=== PATIENT | female | born 2000 | race Caucasian/White ===

== ENCOUNTER 2018-10-11 14:09 | Inpatient (IN) | payer OTHER ==
[~2018-10-11] VITALS: Ht 157.5 cm; Wt 69.8 kg
[~2018-10-11 14:09] MED LIST: PREN1TAB13 PO
[2018-10-11 14:24] VITALS: Ht 157.5 cm; Wt 69.8 kg
[2018-10-11 14:27] VITALS: BP 114/66; PULSE 67; RESP 20
[2018-10-11] MEDS ORDERED: OXYTOCIN 30 UNITS/LR 500 ML IV SCH ×2 (15:30)
[2018-10-11] MEDS ORDERED: METHYLERGONOVINE 0.2 MG INJ IM PRN (15:30)
[2018-10-11] MEDS ORDERED: MISOPROSTOL 200 MCG TAB PR PRN ×2 (15:30→20:30)
[2018-10-11] MEDS ORDERED: OXYTOCIN 30 UNITS/LR 500 ML IV PRN (15:30)
[2018-10-11] MEDS ORDERED: LIDOCAINE 1% (MPF) 30 ML INJ INJ PRN (15:30)
[2018-10-11] MEDS ORDERED: CARBOPROST 250 MCG INJ IM PRN (15:30)
[2018-10-11] MEDS: LACTATED RINGER'S 1,000 ML IV SCH ×2 (16:12→20:31)
[2018-10-11] MEDS ORDERED: LACTATED RINGER'S 1,000 ML IV SCH (20:28)
--- NOTE | 2018-10-11 20:28 | HP ---
Date/Time of Note Date/Time of Note DATE: 10/11/18 TIME: 20:20 OB - History Hx of Present Free Text/Dictation 17 YO G1 with IUP at 37 weeks with EDC of 11/01/2018. 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 she was f/u by weekly BPP by perinatologist. today Dr. Singer called me because she had BPP 6/8 and higher BPs as compare to her baseline BPs. Jennifer also reported decreased FM. NST had repeated decelerations in triage. NST is category one at this time. BPP was 8/8 in Triage. patient was seen by me last week in office and reported to me that she is motivated to have vaginal delivery. today she became very concerned with decelerations and she does not want to have vaginal delivery. she is requesting elective primary c/s. I discussed with the patient the risks, benefits, indications, and alternatives of procedure including but not limited to risks of infection, bleeding, damage to other organs, bowel, bladder, hernia formation, scar formation, possibility of blood transfusion, possible need for emergency hysterectomy. She was allowed to ask questions. All her questions were answered. Informed consent has been obtained. she denies headache, visual changes or RUQ pain. Care: Good Care Ultrasounds: Abnormal US findings Obstetrical Complications: None Medical Complications: None Past Family/Social History * Past Medical, Surgical, Family and Obstetric Histories reviewed from chart. OB Admission Exam Vital Signs Vital Signs Vital Signs Date Temp Pulse Resp B/P (MAP) Pulse Ox O2 O2 Flow FiO2 Time Delivery Rate 10/11/18 97.9 67 20 114/66 14:27 (82) Physical Exam HEENT: WNL Heart: Rhythm Normal Lungs: Clear, Equal Abdomen: WNL Extremities: Normal Reflexes: Normal Cervical Dilatation: None Last 72 hours Lab Results CBC & BMP 10/11/18 15:30 Liver Function Test 10/11/18 15:30 Alanine Aminotransferase (ALT/SGPT) 16 Albumin 3.1 L Alkaline Phosphatase 227 H Aspartate Amino Transf (AST/SGOT) 24 Direct Bilirubin 0.00 Total Protein 6.2 OB Assessment/Plan Other Assessment: IUP at 37 weeks variable decelerations in triage Gastroschisis patient desires delivery Plan: Section JACEK ABDI MD Oct 11, 2018 20:28
[2018-10-11] MEDS ORDERED: OXYCODONE/ACETAMINOPHEN (5/325) TAB PO PRN (20:30)
[2018-10-11] MEDS ORDERED: NA PHOSPHATE/BIPHOS 133 ML ENEMA PR PRN (20:30)
[2018-10-11] MEDS ORDERED: CEFAZOLIN 2 GM/50 ML (PMX) 50 ML IVPB SCH (20:30)
[2018-10-11] MEDS ORDERED: LANOLIN HPA 1 PKT TOP PRN (20:30)
--- NOTE | 2018-10-11 20:33 | PREAC ---
Date/Time of Note Date/Time of Note DATE: 10/11/18 TIME: 20:32 Anesthesia Eval and Record Evaluation Time Pre-Procedure Interview DATE: 10/11/18 TIME: 20:32 Age 17 Sex female NPO: 8 hrs Preoperative diagnosis c section Planned procedure c section Past Medical History Past Medical History: None Surgery & Anesthesia Issues No known issue Meds Anticoagulation: No Beta Milena within 24 hr: No Reason Beta Milena not given: Pt. not on B-Milena Reported Medications Pnv95/Ferrous Fumarate/FA ( Vitamins Tablet) 1 Each Tablet, 1 EACH PO, TAB 10/03/18 Current Medications Lactated Ringer's 1,000 ml @ 125 mls/hr Q8H IV Last administered on 10/11/18at 20:31; Admin Dose 125 MLS/HR; Start 10/11/18 at 15:24 Lidocaine (Xylocaine 1% (Mpf)) 30 ml ONCE PRN INJ .EPISIOTOMY; Start 10/11/18 at 15:30 Oxytocin/Lactated Ringer's 500 ml @ 500 mls/hr ONCE POST IV ; Start 10/11/18 at 15:30 Oxytocin/Lactated Ringer's 500 ml @ 125 mls/hr POST IV ; Start 10/11/18 at 15:30 Oxytocin/Lactated Ringer's 500 ml @ 0 mls/hr ONCE PRN IV .VAGINAL BLEEDING; Start 10/11/18 at 15:30 Methylergonovine Maleate (Methergine) 0.2 mg ONCE PRN IM .VAGINAL BLEEDING; Start 10/11/18 at 15:30 Carboprost Tromethamine (Hemabate) 250 mcg ONCE PRN IM .VAGINAL BLEEDING; Start 10/11/18 at 15:30 Misoprostol (Cytotec) 1,000 mcg ONCE PRN AK .VAGINAL BLEEDING; Start 10/11/18 at 15:30 Cefazolin Sodium/ Dextrose 50 ml @ 100 mls/hr ONCE IVPB ; Start 10/11/18 at 20:30 Lactated Ringer's 1,000 ml @ 125 mls/hr Q8H IV ; Start 10/11/18 at 20:28; Stop 10/12/18 at 00:27; Status UNV Oxycodone/ Acetaminophen (Percocet (5/ 325)) 1 tab Q4H PRN PO .PAIN 4-6; Start 10/11/18 at 20:30; Status UNV Oxycodone/ Acetaminophen (Percocet (5/ 325)) 2 tab Q4H PRN PO .PAIN 7-10; Start 10/11/18 at 20:30; Status UNV Ibuprofen (Motrin) 600 mg Q6 PO ; Start 10/12/18 at 00:00; Status UNV Simethicone (Mylicon) 160 mg Q8H PRN PO .GAS; Start 10/11/18 at 20:30; Status UNV Senna/Docusate Sodium (Senokot-S) 1 tab BID PO ; Start 10/11/18 at 21:00; Status UNV Sodium Biphosphate/ Sodium Phosphate (Fleet Enema) 133 ml DAILY PRN AK .CONSTIPATION; Start 10/11/18 at 20:30; Status UNV Lanolin (Lanolin Hpa) 1 applic BEDSIDE MEDICATION PRN TOP .NIPPLES; Start 10/11/18 at 20:30; Status UNV Diphtheria/ Tetanus/Acell Pertussis (Adacel) 0.5 ml ONCE ONCE IM* ; Start at 09:00; Stop 10/14/18 at 09:01; Status UNV Measles/Mumps/ Rubella Vaccine Live (Mmr Ii Vaccine) 0.5 ml ONCE ONCE SC* ; Start 10/14/18 at 09:00; Stop 10/14/18 at 09:01; Status UNV Misoprostol (Cytotec) 1,000 mcg ONCE PRN AK .VAGINAL BLEEDING; Start 10/11/18 at 20:30; Status UNV Meds reviewed: Yes Allergies Coded Allergies: No Known Allergies (Unverified Allergy, Unknown, 12/13/15) Allergies Reviewed: Yes Labs/Studies Labs Reviewed: Reviewed by anesthesiologist Result Diagram: 10/11/18 1530 10/11/18 1530 Laboratory Tests 10/11/18 15:30 Blood Bank Test 10/11/18 15:30 10/11/18 20:28 Antibody Screen NEGATIVE Blood Type A POSITIVE Rh Immune Globulin Candidate NO Blood Product Summary Counts test: N/A Pre-procedure Exam Last vitals Vital Signs Date Temp Pulse Resp B/P (MAP) Pulse Ox O2 O2 Flow FiO2 Time Delivery Rate 10/11/18 97.9 67 20 114/66 14:27 (82) Airway: Adequate mouth opening, Adequate thyromental dist Mallampati: Mallampati III Teeth: Normal Lung: Normal Heart: Normal ASA Physical Status ASA physical status: 2 Emergency: None Pre-operative Attestations Prior to commencing anesthesia and surgery, the patient was re-evaluated, there was verification of: *The patient's identity *The results of appropriate recent lab work and preoperative vital signs *The above evaluation not changing prior to induction *Anesthetic plan, risk benefits, alternative and complications discussed with patient/family; questions answered; patient/family understands, accepts and wishes to proceed. SOREN GONZALEZ DO Oct 11, 2018 20:32
[2018-10-11] MEDS ORDERED: FENTAnyl 50 MCG/ML VIAL ONE (20:58)
[2018-10-11] MEDS ORDERED: morphine SULFATE/PF (10 MG/10 ML) INJ ONE (20:58)
[2018-10-11] MEDS: SENNA/DOCUSATE NA (8.6MG/50MG) TAB PO SCH (21:00)
[2018-10-11] MEDS ORDERED: ONDANSETRON 4 MG INJ ONE (21:29)
[2018-10-11] MEDS ORDERED: DEXAMETHASONE 4 MG/ML 1 ML INJ ONE (21:29)
[2018-10-11] MEDS ORDERED: ZOLPIDEM 5 MG TAB PO PRN (22:00)
[2018-10-11] MEDS ORDERED: NALOXONE (0.4 MG/ML) INJ IV PRN (22:00)
[2018-10-11] MEDS ORDERED: ONDANSETRON 4 MG INJ IV PRN (22:00)
[2018-10-11] MEDS ORDERED: DIPHENHYDRAMINE 50 MG INJ IV PRN (22:00)
[2018-10-11] MEDS ORDERED: HYDROmorphONE 0.5 MG/0.5 ML SYG IV PRN ×2 (22:00)
[2018-10-11] MEDS ORDERED: MIDAZOLAM 1 MG/ML 2 ML INJ ONE (22:05)
[2018-10-11] MEDS ORDERED: KETAMINE (50 MG/ML) 10 ML VIAL ONE (22:05)
--- NOTE | 2018-10-11 22:29 | OPR ---
Date/Time of Note Date/Time of Note DATE: 10/11/18 TIME: 22:24 Operative Report Procedure Date: Oct 11, 2018 Preoperative Diagnosis IUP at 37 weeks Variable decelerations Gastroschisis Postoperative Diagnosis same Operation/Procedure Performed Primary Low Transverse Delivery Surgeon Gi Linares MD [employer] Operator Dr. Lay Anesthesia Type: spinal Estimated Blood Loss: other (700 ml) Transfusion none Specimen Placenta Grafts/Implants none Tubes/Drains Sifuentes Cath Complications none Pt Condition Post Procedure: stable Disposition: PACU Procedure Description The risks, benefits, indications, alternatives of procedure including, but not limited to risk of infection, bleeding, damage to other organs, bowel, bladder, hernia formation, scar formation, possibility of blood transfusions were discussed with the patient. She was allowed to ask questions. All her questions were answered. Informed consent was obtained. DESCRIPTION OF PROCEDURE: She was taken to the operating room. Spinal an esthesia was induced. She was prepped and draped in the usual sterile fashion. Surgical time out one. Anesthesia was tested to be adequate. With permission from anesthesiologist, a knife was used to make a Pfannenstiel skin incision. The incision was taken down in layers. The fascia was cut, undermined and from the underlying muscle using sharp and blunt dissection. All the bleeders were cauterized. Peritoneum was entered bluntly. A low transverse incision was developed over the uterus. Amniotic fluid was clear and adequate. A viable infant in vertex presentation was delivered without any difficulty. Large amount of intestines were out of neonates body. Nuchal cord x 2. Delayed cord clamping done for 30 seconds. The cord was clamped and cut, handed to awaiting team. Placenta was then delivered. Uterus was exteriorized, wrapped around a moist lap. Inside uterus was cleaned using a dry lap. All residual membranes were removed. The uterine incision was then closed using #1 Monocryl in 2 layers. The uterus was inserted back inside the abdominal cavity. Irrigation was done carefully. Careful evaluation of the uterine incision revealed no further bleeding. The peritoneum and rectus muscles and fascia were evaluated. All bleeders cauterized. Peritoneum was closed using 2-0 Monocryl. At this time, the count was correct. Rectus muscle was reapproximated using 2-0 Monocryl. Rectus fascia was closed using #1 Vicryl. Subcutaneous tissue was cleaned and irrigated. All bleeders cauterized and the skin closed using 4-0 Monocryl. All counts correct. GI LINARES MD Oct 11, 2018 22:28
--- NOTE | 2018-10-11 22:44 | PAC ---
Date/Time of Note Date/Time of Note DATE: 10/11/18 TIME: 22:43 Post-Anesthesia Notes Post-Anesthesia Note Last documented vital signs Vital Signs Date Temp Pulse Resp B/P (MAP) Pulse Ox O2 O2 Flow FiO2 Time Delivery Rate 10/11/18 98 80 20 140/60) 100 2243 Activity: WNL Respiratory function: WNL Cardiovascular function: WNL Mental status: Baseline Pain reasonably controlled: Yes Hydration appropriate: Yes Nausea/Vomiting absent: Yes SOREN GONZALEZ DO Oct 11, 2018 22:44
[2018-10-11] MEDS: KETOROLAC 30 MG INJ IV PRN (22:53)
[2018-10-12 01:01] VITALS: BP 136/69; PULSE 70; RESP 18
[2018-10-12 04:00] VITALS: BP 125/72; PULSE 58; RESP 18
[2018-10-12] MEDS: IBUPROFEN 600 MG TAB PO SCH ×5 (05:57→23:53)
[2018-10-12] MEDS: KETOROLAC 30 MG INJ IV PRN ×2 (05:59→15:38)
[2018-10-12 07:45] VITALS: BP 130/81; PULSE 67; RESP 18
[2018-10-12] MEDS: SENNA/DOCUSATE NA (8.6MG/50MG) TAB PO SCH ×2 (10:23→21:54)
[2018-10-12 12:00] VITALS: BP 128/81; PULSE 65; RESP 19
[2018-10-12] MEDS: LACTATED RINGER'S 1,000 ML IV SCH ×2 (12:53→20:30)
--- NOTE | 2018-10-12 14:05 | PN ---
Date/Time of Note Date/Time of Note DATE: 10/12/18 TIME: 14:03 OB Subjective Subjective Subjective POD#1 Patient is doing well. She denies nausea, vomiting, shortness of breath, chest pain, headache. She has been ambulating without difficulty, tolerating regular diet. Pain is well controlled on current medications OB Objective Objective Objective VS - Last 72 Hours, by Label Date Temp Pulse Resp B/P (MAP) Pulse Ox O2 O2 Flow FiO2 Time Delivery Rate 10/12/18 98.0 65 19 128/81 99 Room Air 12:00 (97) 10/12/18 97.8 67 18 130/81 98 Room Air 07:45 (97) 10/12/18 98.5 58 18 125/72 96 Room Air 04:00 (89) 10/12/18 99.4 70 18 136/69 96 Room Air 01:01 (91) 10/11/18 97.9 67 20 114/66 14:27 (82) General: AAO X 3, comfortable, NAD, appropriate mood and affect. ABD: +BS. Soft, non-tender. Uterus 2 cm below umbilicus Incision: Dry dressing Flank: No CVA tenderness (B/L) LE: Mild edema. No clubbing, cyanosis, thigh or calf tenderness (B/L). Homans 'sign is negative OB Assessment/Plan Other plan: 16-year-old 1 para 1001 s/p primary delivery at 37 weeks POD#1 - AF, VSS - Continue current care - Follow up with her primary OB AMADA CABRAL Oct 12, 2018 14:05
[2018-10-12 15:38] VITALS: BP 124/64; PULSE 74; RESP 18
[2018-10-12 20:00] VITALS: BP 119/62; PULSE 80; RESP 18
[2018-10-13] VITALS: BP 115/60; PULSE 79; RESP 20
[2018-10-13 04:00] VITALS: BP 109/70; PULSE 88; RESP 20
[2018-10-13] MEDS: LACTATED RINGER'S 1,000 ML IV SCH (04:30)
[2018-10-13] MEDS: IBUPROFEN 600 MG TAB PO SCH ×3 (06:56→17:45)
[2018-10-13 08:00] VITALS: BP 124/75; PULSE 72; RESP 18
[2018-10-13] MEDS: SENNA/DOCUSATE NA (8.6MG/50MG) TAB PO SCH ×2 (09:09→21:12)
[2018-10-13] MEDS: OXYCODONE/ACETAMINOPHEN (5/325) TAB PO PRN ×2 (11:45→16:44)
[2018-10-13 16:40] VITALS: BP 134/84; PULSE 71; RESP 18
--- NOTE | 2018-10-13 18:34 | PN ---
Date/Time of Note Date/Time of Note DATE: 10/13/18 TIME: 18:33 OB Subjective Subjective Subjective Ambulating. Passed flatus. Breast-feeding. Denies any shortness of breath or chest pain. Denies any dizziness or lightheadedness. Denies any symptoms. Pain well-controlled with p.o. pain medication. OB Objective Objective Objective General appearance: Alert and oriented x4 does not appear to be in any acute distress Abdomen: Soft, fundus palpable firm and nontender palpable 2 cm below the umbilicus incision: Clean dry and intact with no evidence of infection,Erythema or drainage Extremities: No calf tenderness, no click no edema Lungs: Clear to auscultation bilaterally CV: RRR Breast: No evidence of mastitis or fissure Laboratory Tests Test 10/12/18 04:40 10/12/18 04:41 10/12/18 07:26 10/13/18 15:37 Rapid Plasma NONREACTIVE Reagin White Blood 14.5 10^3/ul Count Red Blood Count 3.62 10^6/ul Hemoglobin 11.0 g/dl Hematocrit 32.5 % Mean 89.8 fl Corpuscular Volume Mean 30.4 pg Corpuscular Hemoglobin Mean 33.8 g/dl Corpuscular Hemoglobin Conc ent Red Cell 12.2 % Distribution Width Platelet Count 173 10^3/UL Mean Platelet 11.2 fl Volume Immature 0.900 % Granulocytes % Neutrophils % 86.0 % Lymphocytes % 10.0 % Monocytes % 2.8 % Eosinophils % 0.0 % Basophils % 0.3 % Nucleated Red 0.0 /100WBC Blood Cells % Immature 0.130 10^3/ul Granulocytes # Neutrophils # 12.5 10^3/ul Lymphocytes # 1.5 10^3/ul Monocytes # 0.4 10^3/ul Eosinophils # 0.0 10^3/ul Basophils # 0.0 10^3/ul Nucleated Red 0.0 10^3/ul Blood Cells # Lab Scanned REFERENCE REFERENCE Report LAB [id number] LAB [id number] VS - Last 72 Hours, by Label Date Temp Pulse Resp B/P (MAP) Pulse Ox O2 O2 Flow FiO2 Time Delivery Rate 10/13/18 98.9 71 18 134/84 Room Air 16:40 (101) 10/13/18 98.2 72 18 124/75 Room Air 08:00 (91) 10/13/18 98.0 88 20 109/70 Room Air 04:00 (83) 10/13/18 98.4 79 20 115/60 Room Air 00:00 (78) 10/12/18 98.5 80 18 119/62 Room Air 20:00 (81) 10/12/18 98.5 74 18 124/64 98 Room Air 15:38 (84) 10/12/18 98.0 65 19 128/81 99 Room Air 12:00 (97) 10/12/18 97.8 67 18 130/81 98 Room Air 07:45 (97) 10/12/18 98.5 58 18 125/72 96 Room Air 04:00 (89) 10/12/18 99.4 70 18 136/69 96 Room Air 01:01 (91) 10/11/18 97.9 67 20 114/66 14:27 (82) OB Assessment/Plan Other Assessment: Status post primary section for gastroschisis and nonreassuring heart tracing Postoperative day #2 Doing well Routine postop care ROCAEL VILLEGAS MD Oct 13, 2018 18:34
[2018-10-13 20:50] VITALS: BP 135/82; PULSE 80; RESP 17
[2018-10-14] MEDS: IBUPROFEN 600 MG TAB PO SCH ×3 (00:25→12:39)
[2018-10-14 04:00] VITALS: BP 126/73; PULSE 75; RESP 18
[2018-10-14 08:30] VITALS: BP 130/83; PULSE 70; RESP 18
[2018-10-14] MEDS ORDERED: DIPHTH/TET/ACEL PERTUSS (ADULT) 0.5 ML VIAL IM* ONE (09:00)
[2018-10-14] MEDS ORDERED: MEASLES,MUMPS,RUBELLA VACCINE INJ SC* ONE (09:00)
[2018-10-14] MEDS: SENNA/DOCUSATE NA (8.6MG/50MG) TAB PO SCH (10:03)
--- NOTE | 2018-10-14 14:01 | DS ---
Date/Time of Note Date/Time of Note DATE: 10/14/18 TIME: 13:59 Obstetrical Discharge Record Final Diagnosis Final Diagnosis: Term delivered Section Section: Primary Primary Indication Gastroschisis with liver out side abdomen Complications Other ( congenital anomaly, Gastroschisis. ) Augmentation: No Induction: No Rupture of Membranes: No Condition on Discharge Physical Assessment Voiding: Yes Bowel Movement: Yes Breast: Soft, non-tender, Filling Fundus: Firm Abdomen and Incision: soft, appropriate tenderness, no sign of infection on incision Calf Tenderness: No Patient Condition: Good JACEK ABDI MD Oct 14, 2018 14:01
[2018-10-14] MEDS: OXYCODONE/ACETAMINOPHEN (5/325) TAB PO PRN (14:50)
== END 2018-10-14 17:41 | disposition home or self-care (01) | DRG 788 ==
LOC: OBT 14:09 → L-D 14:09 → OBT 15:10 → L-D 20:53 → MS1 10-12 01:09
PROVIDERS: ADMIT Specialist; ATTEND Specialist
PROC: 3E033VJ Introduction of Other Hormone into Peripheral Vein, Percutaneous Approach (ICD-10-PCS; 2018-10-11)
PROC: 10D00Z1 Extraction of Products of Conception, Low, Open Approach (ICD-10-PCS; principal; 2018-10-11 21:00)
DX: O76 Abnormality in fetal heart rate and rhythm complicating labor and delivery (principal); O35.8XX0 Maternal care for other (suspected) fetal abnormality and damage, not applicable or unspecified; Z3A.37 37 weeks gestation of pregnancy; Z37.0 Single live birth
CPT/HCPCS: 76818; 80053; 81001; 84560; 85025; 85384; 85610; 85730; 86592; 86850; 86900; 86901; 87340; 88307; 99464; G0463; J0690; J1100; J1885; J2250; J2274; J2405; J2590; J3010; J7120